=== PATIENT | male | born 2000 | race Asian ===

== ENCOUNTER 2022-02-22 10:54 | Emergency (ER) | payer OTHER ==
[~2022-02-22] VITALS: Ht 177.8 cm; Wt 86.4 kg
[2022-02-22] MEDS ORDERED: CETI-450 PO (11:00)
[2022-02-22 14:13] VITALS: BP 129/74
[2022-02-22] MEDS ORDERED: IBUPROFEN 600 MG TABLET PO ONE (14:15)
== END 2022-02-22 14:38 | disposition home or self-care (01) ==
LOC: EMS 10:54
DX: R07.89 Other chest pain (principal); R06.02 Shortness of breath; Z56.3 Stressful work schedule
CPT/HCPCS: 71046; 93005; 99283